=== PATIENT | female | born 1960 ===

== ENCOUNTER 2025-01-28 14:09 | Emergency (ER) | payer OTHER ==
[2025-01-28] MEDS ORDERED: LIDOCAINE HCL 1%, 10 MG/ML (50 mL VIAL) SQ ONE (14:44)
[2025-01-28] MEDS ORDERED: LIDOCAINE HCL 1%, 10 MG/ML (20ML VIAL) ONE (14:51)
[2025-01-28 14:59] VITALS: BP 139/57; PULSE 94; RESP 18; TEMP 98.1; BMI 21.7
== END 2025-01-28 16:06 | disposition home or self-care (01) ==
LOC: JERFT 14:09
PROC: 0H9GXZZ Drainage of Left Hand Skin, External Approach (ICD-10-PCS; principal; 2025-01-28)
DX: L03.012 Cellulitis of left finger (principal)
CPT/HCPCS: 99283-25